=== PATIENT | female | born 1990 | race Two or more races ===

== ENCOUNTER 2024-06-15 12:06 | Emergency (ER) | payer OTHER ==
[~2024-06-15] VITALS: Ht 162.6 cm; Wt 68.0 kg
[2024-06-15] MEDS ORDERED: KETOROLAC TROMETHAMINE 60 MG VIAL IM ONE ×2 (13:28→13:30)
[2024-06-15] MEDS ORDERED: DICLOXACILLIN250 MG PO (14:25)
[2024-06-15] MEDS ORDERED: MOTRIN PM CAPL1 EACH PO (14:25)
== END 2024-06-15 14:35 | disposition home or self-care (01) ==
LOC: ER 12:07
DX: L03.012 Cellulitis of left finger (principal); L02.512 Cutaneous abscess of left hand